=== PATIENT | female | born 1965 | race Caucasian/White ===

== ENCOUNTER → 2024-06-15 11:06 | Outpatient (REF) | payer BC, SELFPAY | LOC: HWWDC 11:06 | PROVIDERS: ATTENDING PHYSICIAN Nurse Practitioner Adult Health; FAMILY PHYSICIAN Internal Medicine | DX: Z01.419 Encounter for gynecological examination (general) (routine) without abnormal findings (principal); Z12.31 Encounter for screening mammogram for malignant neoplasm of breast | CPT/HCPCS: 77063; 77067 ==

== ENCOUNTER → 2024-06-25 08:27 | Outpatient (REF) | payer BC, SELFPAY | LOC: WDC 08:27 | PROVIDERS: ATTENDING PHYSICIAN Nurse Practitioner Adult Health; FAMILY PHYSICIAN Internal Medicine | DX: R92.8 Other abnormal and inconclusive findings on diagnostic imaging of breast (principal) | CPT/HCPCS: 76642 ==

== ENCOUNTER → 2025-06-23 16:30 | Outpatient (REF) | payer BC, SELFPAY | LOC: WDC 16:30 | PROVIDERS: ATTENDING PHYSICIAN Nurse Practitioner Adult Health; FAMILY PHYSICIAN Nurse Practitioner Adult Health | DX: Z12.31 Encounter for screening mammogram for malignant neoplasm of breast (principal) | CPT/HCPCS: 77063; 77067 ==

== ENCOUNTER → 2025-07-06 09:25 | Outpatient (REF) | payer BC, SELFPAY | LOC: WDC 09:25 | PROVIDERS: ATTENDING PHYSICIAN Nurse Practitioner Adult Health; FAMILY PHYSICIAN Nurse Practitioner Adult Health | DX: R92.8 Other abnormal and inconclusive findings on diagnostic imaging of breast (principal) | CPT/HCPCS: 76642 ==

== ENCOUNTER → 2025-07-15 07:53 | Outpatient (REF) | payer BC, SELFPAY ==
--- NOTE | 2025-07-15 13:34 | OID.BR.INTR ---
[facility] Breast Navigator - Initial
- -
Date of Contact: 07/15/25
Met with patient. Patient given written information on navigator service available at [facility]. Will follow up as needed per protocol.
== END ==
LOC: WDC 07:53
PROVIDERS: ATTENDING PHYSICIAN Nurse Practitioner Adult Health; FAMILY PHYSICIAN Nurse Practitioner Adult Health
DX: N63.14 Unspecified lump in the right breast, lower inner quadrant (principal)
CPT/HCPCS: 19083; 19084; 88305; 88341; 88342; 88360; A4648

== ENCOUNTER → 2025-07-26 11:20 | Outpatient (REF) | payer BC, SELFPAY | LOC: RAD 11:20 | PROVIDERS: ATTENDING PHYSICIAN Nurse Practitioner Adult Health | DX: Z78.0 Asymptomatic menopausal state (principal) | CPT/HCPCS: 77080 ==

== ENCOUNTER → 2025-08-12 16:25 | Outpatient (REF) | payer BC, SELFPAY | LOC: MRI 3T 16:25 | PROVIDERS: ATTENDING PHYSICIAN Surgery; FAMILY PHYSICIAN Family Medicine | DX: C50.411 Malignant neoplasm of upper-outer quadrant of right female breast (principal) | CPT/HCPCS: 77049; A9585 ==

== ENCOUNTER 2025-08-13 06:03 | Day surgery (SDC) | payer BC, SELFPAY ==
[2025-08-04 07:22] VITALS: BMI 20.1
[2025-08-04 09:11] LABS: Hematocrit 38.5 % (37.0-47.0); Hemoglobin 13.1 g/dL (12.0-16.0); Mean Corp Hgb Conc. 34.0 g/dL (33.0-37.0); Mean Corpuscular Volume 93.9 fL (81.0-99.0); Platelet Count 331 10^3/uL (130-400); Red Cell Dist. Width 11.5 % (11.5-14.5)
[2025-08-04 09:22] LABS: ALT (SGPT) 13 U/L (0-35); AST (SGOT) 26 U/L (14-36); Albumin 5.0 g/dl (3.5-5.0); Alkaline Phosphatase 53 U/L (38-126); Blood Urea Nitrogen 18 mg/dl (7-17); Calcium 9.8 mg/dl (8.4-10.2); Carbon Dioxide 27 mmol/L (22-30); Chloride 102 mmol/L (98-107); Estimated Creatinine Clearance 61 ml/min; Glucose 86 mg/dl (70-99); Potassium 4.4 mmol/L (3.5-5.1); Sodium 138 mmol/L (135-145); Total Protein 8.1 g/dl (6.3-8.2); eGFR > 60.00
[2025-08-04 09:34] LABS: Prealbumin (Transthyretin) 28.9 mg/dl (17.6-36.0)
[2025-08-04 09:47] LABS: Vitamin D, 25-OH*** 31.4 ng/mL (30-80)
[2025-08-13 06:25] VITALS: BP 130/67
[2025-08-13] MEDS: NSS 1000 IV (06:25)
[2025-08-13 06:47] VITALS: BMI 20.1
--- NOTE | 2025-08-13 08:26 | W.IMMPOSTOP ---
Surgical Immed Post Op Note
-
Primary Surgeon: Lita
Assisting Surgeon: None
Pre-op Diagnosis: Right breast
Post-op Diagnosis: Same
Procedure Performed: Insertion left port a cath
Anesthesia Type: TIVA
Specimen / Cultures: None
Estimated Blood Loss: 4cc
Complications: None
Operative Findings: None
[2025-08-13 08:27] VITALS: BP 133/67
--- NOTE | 2025-08-13 08:27 | OR.RPT ---
Operative Report
Operative Report
Date of procedure: 08/13/2025
Surgeon: Lita
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
Postoperative diagnosis: Same
Procedure: Insertion left Port-A-Cath
Patient is a 60-year-old female with node positive HER2 positive breast carcinoma presents for left Port-A-Cath insertion for the administration of neoadjuvant chemotherapy. On the day of the procedure the patient presented to the same-day surgical
services unit. She was prepped and she verified site and procedure. DVT and antibiotic prophylaxis were delivered and she was transferred to the operating room. In Trendelenburg position with shoulder roll and placed on intravenous sedation was
delivered. The left neck, chest and shoulder were prepped and draped in usual sterile fashion. An appropriate timeout procedure was performed by all staff members.
All tissues were anesthetized with 1% lidocaine plain. Via Seldinger technique the left subclavian vein was entered percutaneously on the first attempt. The guidewire was passed under fluoroscopic guidance into the superior vena cava and secured
to the drapes. A subcutaneous port pocket was fashioned sharply and with the cautery just inferior to the exit site of the guidewire. A single-lumen low-profile port flushed with heparinized saline was placed in the pocket and the catheter was
securely attached. The catheter was passed to the exit site of the guidewire and cut to a length of 17 cm using fluoroscopic guidance. The vascular tract was dilated. The wire was passed through the dilator and sheath then the wire and dilator
were removed. The vascular tear-away sheath was removed and good position of the tip in the superior vena cava was noted.
The catheter aspirated and flushed well. The patient was taken out of Trendelenburg position. Marcaine 0.5% plain was instilled into all tissues. The wound was closed using simple interrupted 2-0 Polysorb on subcutaneous tissue and a running
subcuticular 4 Monocryl on skin. Surgical glue and a sterile compressive dressing were applied. All sponge needle and instrument counts were correct and the patient was transferred to the same-day surgical services unit where a postoperative chest
x-ray will be obtained.
([id number])
[2025-08-13 08:30] VITALS: BP 137/65
[2025-08-13 08:45] VITALS: BP 136/59
[2025-08-13 09:00] VITALS: BP 138/57
== END 2025-08-13 09:40 | disposition home or self-care (01) ==
LOC: SDS 06:03
PROVIDERS: ATTENDING PHYSICIAN Surgery; FAMILY PHYSICIAN Family Medicine
DX: C50.911 Malignant neoplasm of unspecified site of right female breast (principal); Z17.0 Estrogen receptor positive status [ER+]
CPT/HCPCS: 36561; 71045; 76000; 80053; 82306; 84134; 85027; 93005; C1788

== ENCOUNTER → 2025-08-16 13:52 | Outpatient (REF) | payer BC, SELFPAY ==
[2025-08-16 14:15] VITALS: BP 170/85; BP_SYST 78
[2025-08-16 15:27] VITALS: BP 163/76
== END ==
LOC: RADI 13:52
PROVIDERS: ATTENDING PHYSICIAN Internal Medicine Hematology & Oncology; FAMILY PHYSICIAN Family Medicine
DX: C79.89 Secondary malignant neoplasm of other specified sites (principal); C50.511 Malignant neoplasm of lower-outer quadrant of right female breast
CPT/HCPCS: 20206; 76942; 88305; 88333; 88341

== ENCOUNTER → 2025-08-21 08:04 | Outpatient (REF) | payer BC, SELFPAY | LOC: RCS 08:04 | PROVIDERS: ATTENDING PHYSICIAN Internal Medicine Hematology & Oncology; FAMILY PHYSICIAN Family Medicine | DX: C50.511 Malignant neoplasm of lower-outer quadrant of right female breast (principal) | CPT/HCPCS: 93306; 93356 ==